=== PATIENT | female | born 1970 | race Caucasian/White ===

== ENCOUNTER 2021-03-17 08:49 | Emergency (ER) | payer BC, OTHER ==
[~2021-03-17] VITALS: Ht 177.8 cm; Wt 81.7 kg
[2021-03-17] MEDS ORDERED: ACYCLOVIR 800800 MG PO (09:10)
[2021-03-17] MEDS ORDERED: FLONASE 0.05%50 MCG NARES (09:48)
[2021-03-17] MEDS ORDERED: AUGMENTIN 875-1 EACH PO (09:48)
[2021-03-17 09:50] VITALS: BP 94/58
--- NOTE | 2021-03-17 14:53 | EKG ---
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 03/17/21 [id number] Mickey Weston MD, FACC /EPI
== END 2021-03-17 09:51 | disposition home or self-care (01) ==
LOC: ER 08:49
DX: J01.90 Acute sinusitis, unspecified (principal); B96.89 Other specified bacterial agents as the cause of diseases classified elsewhere; Z79.899 Other long term (current) drug therapy; Z20.822 Contact with and (suspected) exposure to COVID-19